=== PATIENT | male | born 1940 | race Caucasian/White ===

== ENCOUNTER 2017-06-12 18:12 | Emergency (ER) | payer SELFPAY ==
[~2017-06-12] VITALS: Ht 172.7 cm; Wt 84.8 kg
[2017-06-12 18:14] VITALS: BP 134/80
[2017-06-12 18:51] LABS: HEMATOCRIT 38.9 % (39.2-51.8); HEMOGLOBIN 13.1 g/dL (13.7-18.0); WHITE BLOOD COUNT 8.2 x10^3/uL (3.4-10)
[2017-06-12] MEDS ORDERED: OXYMETAZOLINE NASAL SPRAY 0.05%, 15ML ONE (18:57)
[2017-06-12] MEDS ORDERED: LIDOCAINE GEL 2%, 5ML ONE (18:59)
[2017-06-12] MEDS ORDERED: OXYMETAZOLINE NASAL SPRAY 0.05%, 15ML NAS ONE (19:00)
[2017-06-12] MEDS ORDERED: PLEASE ENTER ALLERGIES MC SCH ×2 (19:00)
== END 2017-06-12 20:38 | disposition home or self-care (01) ==
LOC: ED 20:20
DX: R04.0 Epistaxis (principal); D68.59 Other primary thrombophilia; I48.91 Unspecified atrial fibrillation; I11.0 Hypertensive heart disease with heart failure; E11.9 Type 2 diabetes mellitus without complications; E78.5 Hyperlipidemia, unspecified; I50.9 Heart failure, unspecified; I25.2 Old myocardial infarction
CPT/HCPCS: 36415; 85025; 93005; 99285